=== PATIENT | female | born 1945 | race Caucasian/White ===

== ENCOUNTER 2024-03-16 17:09 | Observation (INO) | payer MEDICARE, OTHER, SELFPAY ==
[2024-03-16 11:47] VITALS: BP 136/77
[2024-03-16 12:41] VITALS: BP 160/64
--- NOTE | 2024-03-16 14:28 | ED.GENMED ---
History of Present Illness
General
Chief Complaint: Fall
Source: patient
Exam Limitations: none
Time Seen by Provider: 03/16/24 13:21
Nursing documentation reviewed up to this point in time: agreed with
History of Present Illness
History of Present Illness:
Patient is a 78-year-old female with past medical history back pain sciatica presents to the ER for evaluation. Family at bedside reports patient is fallen 3 times since . They have called EMS because they were not able to get her up.
They report she is falling because she is too weak to stand on her own. She has been trying to use her walker. She does have chronic back pain and is on tramadol, gabapentin. In addition to her medication she also takes CBD Gummies and temazepam
for sleep.
Patient did sustain a wound to left anterior lower leg, from the fall 2 days ago on . EMS did come to the scene and did dress patient's wound.
Pt denies hitting head however pt's brother and report she seems to be a little confused intermittently.
She herself denies hitting her head she does not feel confused. She denies any fever chills chest pain shortness of breath.
Patient recently had outpatient MRI for back pain, LS-spine which does show multilevel lumbar spondylosis most pronounced at L4-L5.
Review of Systems
Review of Systems
Allergies reviewed?: Yes
All Other Systems: ROS reviewed and negative except as documented in HPI and ROS
Constitutional: Reports no symptoms; Denies fever, fatigue or chills
Respiratory: Reports no symptoms
Cardiac: Reports no symptoms
ABD/GI: Reports no symptoms
Musculoskeletal: Reports no symptoms
Skin: Reports no symptoms
Neurological: Reports other (family reports pt seems confused at times ); Denies dizzy or headache
Psychiatric: Reports no symptoms
Phy Exam
General Physical Exam
General Presentation: no apparent distress
General age: appears stated age
General Skin: warm and dry
General Habitus: elderly
General Mental: alert
General Hydration: dry mucous membranes
Eye Exam
Eye Exam: PERRL and EOMI
Eye Exam General: PERRL: bilateral and EOM intact: bilateral
Pupil Exam: Bilateral: round and reactive
Cardiovascular Exam
Cardiovascular Exam: regular rate/rhythm, no murmur and normal peripheral pulses
Pulmonary Exam
Pulmonary Exam: lungs clear and no respiratory distress
Neurological Exam
Neurological Exam: alert and oriented x3
Musculoskeletal Exam
Musculoskeletal Exam: other (No obvious head injury on exam left anterior leg with skin tear full range of motion to extremities)
Skin Exam
Skin Exam: normal color and warm/dry
Psychiatric Exam
Psychiatric Exam: normal mood/affect
Course
Orders/Labs/Results
Orders:
Orders
03/16/24 Breakfast
Regular
At Your Request: Limited Participation
03/16/24 14:32
CT Head W/o Iv Contrast Urgent
Comment:
Reason For Exam: change in ms /recent falls
03/16/24 14:33
Electrocardiogram (*1) Stat
Reason for Study: Abdominal Pain
Cardiac Monitoring- Treatment ONCE
EKG- Treatment ONCE
IV Insert/Care/Rem.- Treatment PRN
03/16/24 14:46
Complete Blood Count/With Diff Urgent
Comprehensive Metabolic Panel Urgent
03/16/24 15:48
0.9% Sodium Chloride 500 ml [Nss] 500 ml IV BOLUS
03/16/24 16:24
Admit/Transfer Patient As Directed
Co-Sign Provider:
Level of Care: Observation services
Assign to:: Medical/Surgical
Physician / Group: [facility]
Diagnosis: Ambulatory Dysfunction
03/16/24 16:26
Code Status As Directed
Resuscitation Status: Full Code
03/16/24 17:31
0.9% Sodium Chloride 1000 ml [Nss] 1,000 ml IV 75 mls/hr
Acetaminophen [Tylenol] 650 mg PO Q4HPRN PRN
Tramadol HCl [Ultram] 50 mg PO Q8HPRN PRN
03/16/24 17:31
Activity As Directed
Activity Level: Out of Bed- Chair
With Assistance
Orthostatic Vital Signs As Directed
Orthostatic VS Frequency: BID
Pneumatic Compression Sleeves As Directed
Type: Knee high
Vital Signs As Directed
Frequency: Per unit guidelines
Ot Eval And Treat Routine
Pt Eval And Treat Routine
Activity Level: Out of Bed-Early Mobility
With Assistance
DX Deep Vein Thrombosis Video Routine
03/16/24 22:00
Gabapentin [Neurontin] 100 mg PO TID
Temazepam [Restoril] 15 mg PO HS
03/17/24 06:16
Basic Metabolic Panel IN AM
Complete Blood Count/No Diff IN AM
Ferritin IN AM
Folate IN AM
Iron IN AM
Magnesium IN AM
Total Iron Binding IN AM
Vitamin B12 IN AM
Abnormal Lab Results
03/16/24
14:46
RBC 3.65 L 10^6/uL
(4.20-5.40)
Hgb 11.3 L g/dL
(12.0-16.0)
Hct 32.7 L %
(37.0-47.0)
Absolute Neuts (auto) 7.8 H 10^3/uL
(1.4-6.5)
Absolute Monos (auto) 0.9 H 10^3/uL
(0.1-0.6)
Lymphocytes % 16.0 L %
(20.5-51.1)
Sodium 132 L mmol/L
(135-145)
Chloride 96 L mmol/L
(98-107)
Creatinine 1.4 H mg/dL
(0.6-1.0)
Glucose 109 H mg/dl
(70-99)
Total Protein 6.2 L g/dl
(6.3-8.2)
03/16/24 14:46
03/16/24 14:46
Vital Signs
Initial and Last Documented VS:
Initial Vital Signs
Temp Pulse Resp BP Pulse Ox
98.1 F 93 18 136/77 95
03/16/24 11:47 03/16/24 11:47 03/16/24 11:47 03/16/24 11:47 03/16/24 11:47
Last Documented Vital Signs
Temp Pulse Resp BP Pulse Ox
99.8 F 98 20 168/72 94
03/16/24 23:00 03/16/24 23:00 03/16/24 23:00 03/16/24 23:00 03/16/24 23:00
MDM/Problems Addressed
Differential Diagnosis Includes:
Not limited to dehydration anemia polypharmacy, infection, head injury skin wound
MDM/Problems Addressed:
Patient is a 78-year-old female with history of chronic pain on gabapentin and tramadol CBD Gummies and Restoril for sleep presents to the ER for evaluation. Family reports that patient has had frequent falls since 1 fall 2 falls
Monday did not believe she has hit her head they have noticed that she seems slightly confused. Each time they had to get EMS to lift her up. They report she is too weak to walk patient is awake alert she is in no acute distress she is oriented
here to person month and year confused today. She does follow commands no focal deficits no obvious head injury. She is on blood thinners. CT head done and negative due to frequent falls. labs reviewed normal white count hemoglobin 11.3 no prior
baseline . Due to frequent falls patient being too weak will require mission for further evaluation. Family does not feel they can care for her at home. UA pending at this time. Hospitalist made aware. Patient with no focal neurodeficits but is
weak had difficulty even sitting up in the stretcher. Will obtain urine but will require admission for weakness, will likely need PT eval.
*Critical Care Note
Total Time (30-74mins, 75-104mins- exclusive of procedures): Not Applicable
ED Attending Note
-
Portions of this chart may have been created with voice recognition software.� Occasional wrong word or��sound alike� substitutions may have occurred due to the inherent limitations of voice recognition software.
Discharge Plan
Departure
Patient Disposition: Admit
Date of Disposition: 03/16/24
Time of Disposition: 15:47
Presentation/result/management discussed w/ accepting MD/DO: Hospitalist
Patient with high blood pressure during this ER visit?: Yes
Condition: Fair
Covid-19: Not Applicable
Discharge Problem:
Weakness
Interventions
Interventions:
*Risk Screen - Suicide Last Done: 03/16/24 12:41
*General Assessment Last Done: 03/16/24 11:47
*Neglect/Abuse Screening Last Done: 03/16/24 12:41
ED- Fall Risk Assessment Last Done: 03/16/24 16:51
*ED COVID-19 Vaccine History Last Done: 03/16/24 11:47
*Nursing Disposition Last Done: 03/16/24 16:51
ED-Musculoskeletal Assessment Last Done: 03/16/24 12:41
ED- Neurological Assessment Last Done: 03/16/24 12:41
ED-Skin Assessment Last Done: 03/16/24 12:41
Discharge Date and Time
Discharge Date/Time: 03/16/24 17:09
[2024-03-16 14:42] VITALS: BP 158/70
[2024-03-16 14:52] LABS: % Basophils 0.7 % (0-2); % Eosinophils 0.9 % (0-6); % Immature Granulocytes 0.4 % (0-0.5); % Monocytes 8.6 % (1.7-9.3); % Neutrophils 73.4 % (42.2-75.2); Absolute Basophils 0.1 10^3/uL (0-0.2); Absolute Eosinophils 0.1 10^3/uL (0-0.7); Absolute Lymphocytes 1.7 10^3/uL (1.2-3.4); Absolute Monocytes 0.9 10^3/uL (0.1-0.6); Absolute Neutrophils 7.8 10^3/uL (1.4-6.5); Hematocrit 32.7 % (37.0-47.0); Hemoglobin 11.3 g/dL (12.0-16.0); Mean Corp Hgb Conc. 34.6 g/dL (33.0-37.0); Mean Corpuscular Volume 89.6 fL (81.0-99.0); Mean Platelet Volume 10.3 fL (7.4-10.4); Nucleated Red Blood Cells % 0 %; Platelet Count 287 10^3/uL (130-400); Red Blood Cell Count 3.65 10^6/uL (4.20-5.40); Red Cell Dist. Width 12.3 % (11.5-14.5); White Blood Cell Count 10.7 10^3/uL (4.8-10.8)
[2024-03-16 15:00] VITALS: BP 161/56
[2024-03-16 15:08] LABS: ALT (SGPT) 10 U/L (0-35); AST (SGOT) 25 U/L (14-36); Albumin 3.6 g/dl (3.5-5.0); Alkaline Phosphatase 57 U/L (38-126); Blood Urea Nitrogen 15 mg/dl (7-17); Calcium 9.2 mg/dl (8.4-10.2); Carbon Dioxide 30 mmol/L (22-30); Chloride 96 mmol/L (98-107); Glucose 109 mg/dl (70-99); Potassium 4.5 mmol/L (3.5-5.1); Sodium 132 mmol/L (135-145); Total Bilirubin 0.7 mg/dl (0.2-1.3); Total Protein 6.2 g/dl (6.3-8.2); eGFR 38.51
[2024-03-16] MEDS: NSS 500 IV (16:15)
--- NOTE | 2024-03-16 16:31 | HPS.HSE ---
Addendum entered and electronically signed by Naun Nick MD 03/16/24 16:54:
Patient seen and examined.
Discussed with KIET Antoine.
Agree with assessment and plan
Impression
Presentation with frequent falls at home
Chronic ambulatory dysfunction.
Chronic pain/sciatica radiating to the left lower extremity with mild weakness.
Left quintanilla superficial wound secondary to fall.
Acute kidney injury suspected unknown baseline creatinine
Insomnia
Possibly benzodiazepine dependence.
Plan:
Falls likely multifactorial due to chronic pain and weakness with left-sided sciatic, polypharmacy, possibly orthostasis.
No focal findings on neurologic examination other than mild left lower extremity weakness.
CT scan of the head with no acute abnormalities
Patient reported recent MRI of the lumbar spine done as outpatient with findings consistent with severe spinal stenosis.
Admit for observation.
Physical therapy assessment
Orthostatic vitals.
Continue current regimen with gabapentin and tramadol.
Reduce dose of temazepam and monitor closely
Acute kidney injury? CKD.
Patient reports no prior cardiovascular or renal conditions
Avoid hypotension
Bladder scan for retention
Challenged with isotonic solution
Follow BMP
Original Note:
Family Physician
-
Family Physician: Curtis Perrin
Chief Complaint
-
Frequent Falls
History of Present Illness
Patient is a 78 y/o female past medical history of hypertension, spinal stenosis and insomnia who presents with frequent falls. Patient has sustained two falls in the past three days. She reports both falls occurred when she was trying to get out
of bed. She denies hitting her head during the event, but states she did scrap her left quintanilla on her rollator during one of the falls. She denies loss of consciousness, dizziness, chest pain or palpitations related to the falls. She was recently
diagnosed with L5/S1 nerve root impingement which is causing increasing pain going down the back of her leg. She denies numbness/tingling of the lower extremities, numbness/tingling of perineal area, urinary incontinence/retention, and stool
incontinence/retention.
Medical History
Past Medical History
Past Medical History: Reports Other
Additional Past Medical History:
Essential Hypertension
Chronic Pain secondary to Spinal Stenosis
Memory Loss / Mild Cognitive Impairment
Insomnia
Past Surgical History: Reports Other
Additional Past Surgical History:
Bilateral Knee Replacements
Social History
Tobacco: Non-smoker
Alcohol: Occasional
Personal:
Living: With Family
Family History
Family History: Not pertinent
Allergies / Home Medications
Allergies reflects when Allergies were last updated in [facility].
Home Medications with original date entered in [facility]
Allergy/Medication List:
Allergies
Allergy/AdvReac Type Severity Reaction Status Date / Time
No Known Allergies Allergy Unverified 03/16/24 11:52
Home Medications
gabapentin 100 mg capsule 100 mg PO TID 03/16/24
temazepam 30 mg capsule 30 mg PO HS 03/16/24
tramadol 50 mg tablet 50 mg PO Q8HPRN PRN moderate pain 03/16/24
Review of Systems
-
A 12 point ROS was completed and negative except as noted: Yes
Constitutional: Denies Fever or Chills
Respiratory: Denies Cough or Trouble Breathing
Cardiac: Denies Chest Pain or Palpitations
Physical Exam
Vital Signs
Vital Signs
Temp Pulse Resp BP Pulse Ox
98.1 F 84 16 161/56 96
03/16/24 11:47 03/16/24 12:41 03/16/24 12:41 03/16/24 15:00 03/16/24 15:00
Physical Exam
General: Comfortable and Conversant
HEENT: Anicteric and Moist mucous membranes
Respiratory: Clear and Non Labored Respirations
Cardiac: S1/S2 and Regular Rhythm
GI: Soft and Non Tender
Musculoskeletal: No Clubbing, No Cyanosis, No Edema and Other (4/5 Strength LLE; 5/5 Strength RLE; Negative Straight Leg Raise )
Skin: Warm and Dry
Neuro: Awake, Alert, Oriented and Nonfocal/grossly intact
Psych: Calm
Laboratory Results
-
03/16/24 14:46
03/16/24 14:46
Laboratory Results
Total Bilirubin 0.7 mg/dl (0.2-1.3) 03/16/24 14:46
AST 25 U/L (14-36) 03/16/24 14:46
ALT 10 U/L (0-35) 03/16/24 14:46
Alkaline Phosphatase 57 U/L (38-126) 03/16/24 14:46
Data Reviewed
-
Lab Data: Labs Reviewed by me
Old Records: Reviewed
Impression/Plan
-
Frequent Falls / Ambulatory Dysfunction
-Possibly related to orthostasis vs poly-pharmacy vs spinal stenosis
-Check orthostatic vital signs
-Decrease temazepam dose from 30mg to 15mg
-Consult PT/OT
Elevated Creatinine, unknown baseline
-Give IVFs overnight
-Recheck creatinine in AM
Chronic Pain secondary to Spinal Stenosis
-Continue Gabapentin
-Patient is scheduled for Epidural Injection as outpatient on MondayMarch 19
Insomnia
-Decrease temazepam as above
DVT proph: SCDS
Code Status: Full Code
[2024-03-16 17:30] VITALS: BP 122/90; BMI 37.0
[2024-03-16] MEDS: NSS 1000 IV (17:43)
[2024-03-16] MEDS: NEURONTIN 100 MG PO (21:43)
[2024-03-16] MEDS: RESTORIL 15 MG PO (22:51)
[2024-03-16 23:00] VITALS: BP 168/72
[2024-03-17] VITALS (10 sets, daily range): BP systolic 131–204; BP diastolic 68–98; PULSE 94–115; O2SAT 96
[2024-03-17] MEDS: NEURONTIN 100 MG PO ×3 (07:33→21:10)
[2024-03-17 07:56] LABS: Hematocrit 28.9 % (37.0-47.0); Hemoglobin 9.8 g/dL (12.0-16.0); Mean Corp Hgb Conc. 33.9 g/dL (33.0-37.0); Mean Corpuscular Hgb 30.4 pg (27.0-31.0); Mean Corpuscular Volume 89.8 fL (81.0-99.0); Mean Platelet Volume 10.7 fL (7.4-10.4); Platelet Count 285 10^3/uL (130-400); Red Blood Cell Count 3.22 10^6/uL (4.20-5.40); Red Cell Dist. Width 12.4 % (11.5-14.5); White Blood Cell Count 10.5 10^3/uL (4.8-10.8)
[2024-03-17 08:14] LABS: Blood Urea Nitrogen 14 mg/dl (7-17); Calcium 8.4 mg/dl (8.4-10.2); Carbon Dioxide 28 mmol/L (22-30); Chloride 98 mmol/L (98-107); Estimated Creatinine Clearance 38 ml/min; Glucose 92 mg/dl (70-99); Magnesium 1.6 mg/dl (1.6-2.3); Potassium 4.2 mmol/L (3.5-5.1); Sodium 132 mmol/L (135-145); eGFR 42.09
[2024-03-17 08:16] LABS: Iron < 20 ug/dl (37-170)
[2024-03-17 08:24] LABS: Total Iron Binding Capacity 191 ug/dl (265-497)
[2024-03-17 09:26] LABS: Folate 12.8 ng/ml (2.76-20); Vitamin B12 > 1000 pg/ml (239-931)
--- NOTE | 2024-03-17 11:28 | W.PN.HOSP.TC ---
Today's Communication/Plan
-
Obtain old MRI report and creatinine report. Continue with the pain medication for left leg sciatica and follow PT report. Consider IR eval for epidural injection depending on these assessments.
Assessment / Plan
Assessment / Plan
Impression
Presentation with frequent falls at home
Chronic ambulatory dysfunction.
Chronic pain/sciatica radiating to the left lower extremity .
Left quintanilla superficial wound secondary to fall.
Renal insufficiency unknown baseline creatinine
Insomnia
Possibly benzodiazepine dependence.
Plan:
Falls likely multifactorial due to chronic pain and weakness with left-sided sciatic, polypharmacy
No focal findings on neurologic examination ; no left foot drop
CT scan of the head with no acute abnormalities
Patient reported recent MRI of the lumbar spine done as outpatient with findings consistent with severe spinal stenosis-Will try and obtain old reports
cw Physical therapy assessment and depending will consult IR for epidural
Orthostatic vitals.
Continue current regimen with gabapentin and tramadol.
Reduce dose of temazepam and monitor closely
Renal insufficiency
Patient reports no prior cardiovascular or renal conditions
Avoid hypotension
Bladder scan for retention
Challenged with isotonic solution
Follow BMP
Obtain old info
Anticipated Discharge: 24 - 48 hours
Subjective/Interval History
-
Date of Service: March 17, 2024
Continued back pain with left leg sciatica all the way from the back to the left foot. Recent onset. She had a reviewed by spine surgeon, had an MRI apparently as an outpatient and due to get a definitive treatment. She apparently was told that
this is disc disease problem. She was started on tramadol. She was managing at home but unfortunately fell getting her to the hospital.
Denies any foot weakness on the left.
Objective Data
-
Labs:
Laboratory Results
03/17/24
06:16
WBC 10.5
Hgb 9.8 L
Hct 28.9 L
Plt Count 285
Sodium 132 L
Potassium 4.2
Chloride 98
Carbon Dioxide 28
BUN 14
Creatinine 1.3 H
Glucose 92
Calcium 8.4
Vital Signs:
Vital Signs
Temp Pulse Resp BP Pulse Ox
98.8 F 105 16 162/74 96
03/17/24 07:53 03/17/24 07:53 03/17/24 07:53 03/17/24 09:13 03/17/24 07:53
I&O
03/16/24 03/17/24 03/18/24
06:59 06:59 06:59
Intake Total 780 / 780
Balance 780 / 780
Review of Systems
-
Constitutional: Denies Fever
Respiratory: Denies Trouble Breathing
Cardiac: Denies Chest Pain
Physical Exam
-
General: No Apparent Distress
Respiratory: Non Labored Respirations; Negative Accessory Resp Muscle Use
Cardiac: Regular Rhythm and S1/S2
Neuro: AO x 3 and No Motor Deficits (left distally 5/5 ; did not check for SLR as pt was sitting in chair.)
Psych: Calm
Data Reviewed
-
Labs: Labs Reviewed by me
[2024-03-17] MEDS: APRESOLINE 5 MG IV ×2 (15:24→22:22)
[2024-03-17] MEDS: RESTORIL 15 MG PO (21:10)
[2024-03-18 07:22] LABS: Hematocrit 31.4 % (37.0-47.0); Hemoglobin 10.8 g/dL (12.0-16.0); Mean Corp Hgb Conc. 34.4 g/dL (33.0-37.0); Mean Corpuscular Hgb 30.7 pg (27.0-31.0); Mean Corpuscular Volume 89.2 fL (81.0-99.0); Mean Platelet Volume 10.5 fL (7.4-10.4); Platelet Count 301 10^3/uL (130-400); Red Blood Cell Count 3.52 10^6/uL (4.20-5.40); Red Cell Dist. Width 12.8 % (11.5-14.5); White Blood Cell Count 10.7 10^3/uL (4.8-10.8)
[2024-03-18 07:33] VITALS: BP 145/60; BP 148/70; BP 150/71; PULSE 109; PULSE 116; PULSE 119
[2024-03-18 07:58] LABS: Blood Urea Nitrogen 20 mg/dl (7-17); Calcium 8.7 mg/dl (8.4-10.2); Carbon Dioxide 27 mmol/L (22-30); Chloride 98 mmol/L (98-107); Estimated Creatinine Clearance 35 ml/min; Glucose 117 mg/dl (70-99); Potassium 4.5 mmol/L (3.5-5.1); Sodium 132 mmol/L (135-145); eGFR 38.51
[2024-03-18] MEDS: NEURONTIN 100 MG PO ×2 (09:24→16:32)
--- NOTE | 2024-03-18 10:25 | WOUNDNOTE ---
WON RN note: Patient admitted with weakness.
See H&P for complete history. Lives with , had recent falls.
PMH:Back pain/sciatica, B/L knee replacements, obesity, abrasion to R leg.
Wound Location and type/assessment: Patient admitted with: several skin tears/lacerations on L anterior lower leg sustained from recent fall. Adaptic stuck to wounds and painful upon removal with saline. Small amt of serosanguineous drainage, no
odor, ecchymotic surrounding and few scabbed areas. Patient able to turn self, sacrum and heels are intact. R leg with old scar from previous laceration. Patient said she ambulates with walker at home.
Appetite: Good, ate most of breakfast.
Pressure redistribution devices in place: On [employer], gets oob to chair.
Plan: Local wound care done with Vaseline gauze to dry dressing. Elevated leg on blanket and pillow. Encouraged patient to elevate leg when sitting, stool nearby. Patient said her can help with wound care and has treated R leg in past. Will
confirm orders with hospitalist and updated nurse. Updated care plan and will follow as needed.
Note to case management of equipment requested for discharge: None unless can't do wound care.
Recommend follow up at wound care center upon discharge if not healing.
--- NOTE | 2024-03-18 14:42 | W.DS.TRANS ---
DC Summary - Spinal Surgeon
-
Discharge Instructions:
Discharge Diagnosis/Procedures Ambulatory dysfunction.
Spinal stenosis
Diet Regular
Instructions:
Stand-Alone Forms:
Changes to Home Medications: Yes
Discharge Medications:
DC Medications w/original date entered in [employer]
gabapentin 100 mg capsule 100 mg PO TID Pain 03/16/24
tramadol 50 mg tablet 50 mg PO Q8HPRN PRN moderate pain 03/16/24
temazepam 30 mg capsule 15 mg (1/2 x 30 mg) PO HS Sleep #0 caps 03/18/24
Home Medication Changes
Temazepam dose reduced
Pending Results: No
--- NOTE | 2024-03-18 15:28 | CM ---
manager monitoring reviewed patient's chart and met with patient and patient was admitted under OBS, SHEPPARD letter signed by patient, patient lives with spouse in a multilevel home with one step to enter, patient was independent with with adl's and used a
walker with ambulation, patient with recent fall and was assessed by physical therapy and plan is to home with visiting nurses, visiting nurse options reviewed with patient and patient has selected [facility], referral sent to [facility].
Plan; Home with [facility].
[2024-03-18 15:47] VITALS: BP 152/53
== END 2024-03-18 17:00 | disposition home or self-care (01) ==
LOC: 4 WEST ACU 17:09
PROVIDERS: Internal Medicine; Nurse Practitioner; Physician Assistant Medical; ADMITTING PHYSICIAN Internal Medicine; EMERGENCY PHYSICIAN Emergency Medicine; FAMILY PHYSICIAN Family Medicine
DX: M54.32 Sciatica, left side (principal); M48.061 Spinal stenosis, lumbar region without neurogenic claudication; M54.9 Dorsalgia, unspecified; G89.29 Other chronic pain; R29.6 Repeated falls; R53.1 Weakness; R10.9 Unspecified abdominal pain; N17.9 Acute kidney failure, unspecified; G31.84 Mild cognitive impairment of uncertain or unknown etiology; N18.30 Chronic kidney disease, stage 3 unspecified; G47.00 Insomnia, unspecified; I12.9 Hypertensive chronic kidney disease with stage 1 through stage 4 chronic kidney disease, or unspecified chronic kidney disease; S80.812A Abrasion, left lower leg, initial encounter; W18.30XA Fall on same level, unspecified, initial encounter; Y93.9 Activity, unspecified; Y92.009 Unspecified place in unspecified non-institutional (private) residence as the place of occurrence of the external cause; Z96.653 Presence of artificial knee joint, bilateral
CPT/HCPCS: 70450; 80048; 80053; 82607; 82728; 82746; 83540; 83550; 83735; 85025; 85027; 93005; 96360; 97161; 97166; 99285; G0378

== ENCOUNTER → 2025-05-12 12:55 | Outpatient (REF) | payer MEDICARE, OTHER, SELFPAY ==
[2025-05-12 15:15] LABS: Albumin 4.1 g/dl (3.5-5.0); Blood Urea Nitrogen 33 mg/dl (7-17); Calcium 9.4 mg/dl (8.4-10.2); Carbon Dioxide 27 mmol/L (22-30); Chloride 105 mmol/L (98-107); Glucose 143 mg/dl (70-99); Potassium 4.3 mmol/L (3.5-5.1); Sodium 137 mmol/L (135-145); eGFR 35.23
[2025-05-15 02:06] LABS: ANA, IgG Reflex to HEp-2 None Detected (None Detected)
[2025-05-15 07:04] LABS: Serine Protease-3, IgG 0 AU/mL (0-19)
== END ==
LOC: HWLAB 12:55
PROVIDERS: ATTENDING PHYSICIAN Specialist; FAMILY PHYSICIAN Family Medicine
DX: N18.32 Chronic kidney disease, stage 3b (principal)
CPT/HCPCS: 36415; 80069; 83516; 83970; 86038; 86160